=== PATIENT | male | born 1945 | race Caucasian/White ===

== ENCOUNTER → 2017-07-03 | Outpatient (CLI) | payer OTHER, BC ==
[~2017-07-03] MED LIST: ATOR-22 PO; ATV/1 PO; AVD5 PO; LOVAZA PO; METO50TA16 PO; MULT-618 PO; NASOCORT INTNAS; PRD150 OP; RPF/8 PO; TEST5GEL
--- NOTE | 2017-07-03 14:31 | ECHOCARDIOGRAM REPORT ---
*NOTICE TO RECEIVING [employer] This information is strictly Confidential and protected under [place] law. [place] law prohibits you from making any further disclosure of this information unless further disclosure is expressly permitted by the written consent of the person to whom it pertains or is authorized by law. A general authorization for the release of medical or other information is not sufficient for this purpose. Hospital accepts no responsibility if the information is made available to any other person, INCLUDING THE PATIENT. Interpretation Summary * Name: DOT KOEHLER Study Date: 07/03/2017 01:58 PM * Patient Location: [facility] HR: 84 * : 1945 (M/d/yyyy) Gender: Male Height: 72 in * Age: 71 yrs Ethnicity: [place] Weight: 178 lb * Ordering Physician: MD Vernon Angulo MD * Performed By: Tanisha Pimentel RCS * * Reason For Study: AORTIC VALVE DISEASE / CHRONIC MITRAL VALVE DISEASE * BSA: 2.0 m2 * -- Conclusions -- * Left ventricular systolic function is normal. * No regional wall motion abnormalities noted. * Ejection Fraction = 55-60%. * There is mild concentric left ventricular hypertrophy. * Diastolic dysfunction, Grade II (pseudonormalization pattern). * At least mild mitral regurgitation. * There is mild tricuspid regurgitation. * Trace aortic regurgitation. Procedure Details * A complete two-dimensional transthoracic echocardiogram was performed (2D, M-mode, Doppler and color flow Doppler). Left Ventricle * The left ventricle is normal in size. * There is mild concentric left ventricular hypertrophy. * Left ventricular systolic function is normal. * Ejection Fraction = 55-60%. * No regional wall motion abnormalities noted. Right Ventricle * The right ventricle is grossly normal size. * The right ventricular systolic function is normal as assessed by tricuspid annular plane systolic excursion (TAPSE) (normal >1.5 cm). Atria * The left atrium is moderately dilated. * The right atrium is mildly dilated. * There is no evidence of atrial septal defect, but resolution does not allow assessment for a patent foramen ovale. Mitral Valve * The mitral valve is grossly normal. * There is no mitral valve stenosis. * At least mild mitral regurgitation. Tricuspid Valve * The tricuspid valve is not well visualized, but is grossly normal. * There is no tricuspid stenosis. * There is mild tricuspid regurgitation. Aortic Valve * The aortic valve is normal in structure and function. * No hemodynamically significant valvular aortic stenosis. * Trace aortic regurgitation. Pulmonic Valve * The pulmonary valve is not well seen, but the Doppler examination is normal without significant regurgitation or stenosis. Great Vessels * The aortic root is normal size. Pericardium/Pleural * There is no pericardial effusion. Great Vessels * Normal inferior vena cava size and collapsability with sniff indicates a normal right atrial pressure of 3 mmHg Left Ventricular Diastolic Function * Diastolic dysfunction, Grade II (pseudonormalization pattern). MMode 2D Measurements and Calculations IVSd 1.3 cm IVSs 1.7 cm LVIDd 4.7 cm LVIDs 3.1 cm LVPWd 1.3 cm LVPWs 1.7 cm IVS/LVPW 1.0 FS 34.2 % EDV(Teich) 103.9 ml ESV(Teich) 38.3 ml EF(Teich) 63.2 % EDV(cubed) 105.8 ml ESV(cubed) 30.1 ml EF(cubed) 71.5 % % IVS thick 28.9 % % LVPW thick 30.0 % LV mass(C)d 236.6 grams LV mass(C)dI 116.7 grams/m\S\2 LV mass(C)s 197.9 grams LV mass(C)sI 97.6 grams/m\S\2 SV(Teich) 65.6 ml SI(Teich) 32.4 ml/m\S\2 SV(cubed) 75.6 ml SI(cubed) 37.3 ml/m\S\2 Ao root diam 3.4 cm Ao root area 9.2 cm\S\2 ACS 2.3 cm LA dimension 5.1 cm LA/Ao 1.5 LVOT diam 2.0 cm LVOT area 3.2 cm\S\2 LVAd ap4 30.8 cm\S\2 LVLd ap4 7.2 cm EDV(MOD-sp4) 106.5 ml EDV(sp4-el) 111.0 ml LVAs ap4 17.5 cm\S\2 LVLs ap4 5.5 cm ESV(MOD-sp4) 46.9 ml ESV(sp4-el) 47.3 ml EF(MOD-sp4) 56.0 % EF(sp4-el) 57.4 % LVAd ap2 31.2 cm\S\2 LVLd ap2 7.2 cm EDV(MOD-sp2) 110.5 ml EDV(sp2-el) 113.7 ml LVAs ap2 18.5 cm\S\2 LVLs ap2 5.6 cm ESV(MOD-sp2) 52.5 ml ESV(sp2-el) 52.0 ml EF(MOD-sp2) 52.5 % EF(sp2-el) 54.3 % LVLd %diff 0.03 % EDV(MOD-bp) 110.0 ml LVLs %diff 1.6 % ESV(MOD-bp) 49.7 ml EF(MOD-bp) 54.8 % SV(MOD-sp4) 59.6 ml SI(MOD-sp4) 29.4 ml/m\S\2 SV(MOD-sp2) 58.0 ml SI(MOD-sp2) 28.6 ml/m\S\2 SV(MOD-bp) 60.3 ml SI(MOD-bp) 29.7 ml/m\S\2 SV(sp4-el) 63.7 ml SI(sp4-el) 31.4 ml/m\S\2 SV(sp2-el) 61.8 ml SI(sp2-el) 30.5 ml/m\S\2 Doppler Measurements and Calculations MV E max emely 83.0 cm/sec MV A max emely 37.2 cm/sec MV E/A 2.2 MV P1/2t max emely 86.3 cm/sec MV P1/2t 48.4 msec MVA(P1/2t) 4.5 cm\S\2 MV dec slope 521.8 cm/sec\S\2 MV dec time 0.19 sec Ao V2 max 98.9 cm/sec Ao max PG 3.9 mmHg Ao max PG (full) 1.8 mmHg ILEANA(V,A) 2.3 cm\S\2 ILEANA(V,D) 2.3 cm\S\2 AI max emely 401.5 cm/sec AI max PG 64.5 mmHg AI dec slope 169.5 cm/sec\S\2 AI P1/2t 693.8 msec LV V1 max PG 2.1 mmHg LV V1 max 72.3 cm/sec MR max emely 540.5 cm/sec MR max PG 116.9 mmHg PA V2 max 82.8 cm/sec PA max PG 2.7 mmHg TR max emely 244.2 cm/sec
== END | disposition home or self-care (01) ==
LOC: C.CPL 12:43
PROVIDERS: ATTEND Internal Medicine Interventional Cardiology
DX: I05.9 Rheumatic mitral valve disease, unspecified (principal); I35.9 Nonrheumatic aortic valve disorder, unspecified

== ENCOUNTER → 2017-08-18 | Outpatient (CLI) | payer OTHER, BC ==
[~2017-08-18] MED LIST changes: +DABI150C3 OP; -PRD150 OP; -RPF/8 PO; +SILO8CAP3 PO
== END | disposition home or self-care (01) ==
LOC: C.LABBC 09:00
PROVIDERS: ATTEND Internal Medicine
DX: E78.5 Hyperlipidemia, unspecified (principal); E03.9 Hypothyroidism, unspecified

== ENCOUNTER → 2017-12-18 | Outpatient (CLI) | payer OTHER, BC ==
[~2017-12-18] MED LIST changes: +RPF/8 PO; -SILO8CAP3 PO
[2017-12-18 11:19] LABS: HEMATOCRIT 41.6 % (42-52); MEAN CELL VOLUME 91.8 fL (80-100); MEAN CORPUSCULAR HEMOGLOBIN 33.1 pg (25-34); MEAN CORPUSCULAR HGB CONC 36.1 g/dl (32-36); MEAN PLATELET VOLUME 10.8 fL (7.4-10.4); PLATELET COUNT 147 K/uL (130-400); RED CELL DISTRIBUTION WIDTH CV 13.6 % (11.5-14.5); RED CELL DISTRIBUTION WIDTH SD 44.8 fL (36.4-46.3); WHITE BLOOD COUNT 4.98 K/uL (4.8-10.8)
== END | disposition home or self-care (01) ==
LOC: C.LABBC 08:24
PROVIDERS: ATTEND Urology
DX: E29.1 Testicular hypofunction (principal)